=== PATIENT | female | born 1970 | race Caucasian/White ===

== ENCOUNTER → 2016-04-29 | Outpatient (CLI) | payer OTHER ==
--- NOTE | 2016-04-29 16:37 | DIAGNOSTIC IMAGING REPORT ---
FUSION CT SINUSES W/O CLINICAL HISTORY: J32.9 Chronic [id number] Facial [id number] Histor COMPARISON STUDY: No previous studies for comparison. FINDINGS: No orbital masses are visualized. There is no evidence of hydrocephalus. There is mild bilateral maxillary sinus mucosal thickening. The mastoid air cells appear symmetrically aerated. There are postsurgical changes of prior functional endoscopic surgery with partial ethmoidectomies. The created nasomaxillary apertures appear patent. The sphenoid and frontal sinuses appear clear. IMPRESSION: 1. No evidence of acute sinusitis 2. Mild bilateral maxillary sinus mucosal thickening 3. Postsurgical changes. The previously created nasomaxillary apertures appear widely patent. Electronically signed by: David Shaw M.D. 04/29/2016 4:35 PM Dictated Date/Time: 04/29/2016 4:33 PM
== END | disposition home or self-care (01) ==
LOC: C.CTS 16:17
PROVIDERS: ATTEND Hospitalist
DX: J32.9 Chronic sinusitis, unspecified (principal); R51 Headache; Z98.890 Other specified postprocedural states

== ENCOUNTER → 2016-08-09 | Outpatient (CLI) | payer OTHER | END | disposition home or self-care (01) | LOC: C.LABBC 08:58 | PROVIDERS: ATTEND Family Medicine | DX: J02.9 Acute pharyngitis, unspecified (principal) ==

== ENCOUNTER → 2016-10-03 | Outpatient (CLI) | payer OTHER ==
[2016-10-03 13:19] LABS: BLOOD UREA NITROGEN 13 mg/dl (7-18); BUN/CREATININE RATIO 19.8 (10-20); CALCIUM 9.2 mg/dl (8.5-10.1); CARBON DIOXIDE 26 mmol/L (21-32); CHLORIDE 108 mmol/L (98-107); CHOLESTEROL 220 mg/dl (0-200); CREATININE 0.66 mg/dl (0.60-1.20); GLUCOSE 99 mg/dl (70-99); SODIUM 140 mmol/L (136-145)
[2016-10-03 13:29] LABS: CHOLESTEROL/HDL RATIO 3.8; HDL CHOLESTEROL 58 mg/dl; LDL CHOLESTEROL CALCULATED 143 mg/dl; THYROID STIMULATING HORMONE 0.702 uIu/ml (0.300-4.500); TRIGLYCERIDES 94 mg/dl (0-150); VERY LOW DENSITY LIPOPROT CALC 19 mg/dl
== END | disposition home or self-care (01) ==
LOC: C.LABPVFM 09:03
PROVIDERS: ATTEND Nurse Practitioner Family
DX: R42 Dizziness and giddiness (principal)

== ENCOUNTER → 2016-10-28 | Outpatient (CLI) | payer OTHER | END | disposition home or self-care (01) | LOC: C.LABPVFM 11:09 | PROVIDERS: ATTEND Obstetrics & Gynecology | DX: N91.2 Amenorrhea, unspecified (principal); Z32.01 Encounter for pregnancy test, result positive ==

== ENCOUNTER → 2016-11-12 | Outpatient (CLI) | payer OTHER | END | disposition home or self-care (01) | LOC: C.LAB1850 09:52 | PROVIDERS: ATTEND Physician Assistant Medical | DX: E34.9 Endocrine disorder, unspecified (principal) ==

== ENCOUNTER → 2017-04-18 | Outpatient (CLI) | payer OTHER ==
--- NOTE | 2017-04-18 11:21 | DIAGNOSTIC IMAGING REPORT ---
CERVICAL SPINE 2 OR 3 VIEWS CLINICAL HISTORY: Right arm paresthesias. COMPARISON STUDY: No previous studies for comparison. FINDINGS: Visualization of the cervical spine is adequate. No fracture or suspicious lesion is present. There is disc space narrowing at C6-C7 with apparent partial fusion which may be congenital. There is mild disc space narrowing with osteophytosis at C5-C6. Prevertebral soft tissues are unremarkable. IMPRESSION: 1. No cervical spine fracture. 2. Disc space narrowing at C6-C7 with apparent partial fusion which may be congenital. 3. Mild disc space narrowing with osteophytosis at C5-C6. Electronically signed by: Aubrey Luther M.D. 04/18/2017 11:20 AM Dictated Date/Time: 04/18/2017 11:18 AM
== END | disposition home or self-care (01) ==
LOC: C.RADPV 10:34
PROVIDERS: ATTEND Family Medicine
DX: M48.02 Spinal stenosis, cervical region (principal); R20.2 Paresthesia of skin